=== PATIENT | male | born 1945 | race Caucasian/White ===

== ENCOUNTER → 2017-10-19 | Day surgery (SDC) | payer OTHER, MEDICARE ==
[2017-09-17 13:52] VITALS: Ht 167.6 cm; Wt 86.4 kg
[~2017-10-19] VITALS: Ht 167.6 cm; Wt 86.4 kg
[~2017-10-19] MED LIST: 500ML BSS 0.3ML EPI 1:1000PF IRRIG ONE; ACET-1256 PO; ACETAMINOPHEN 325 MG TAB PO PRN; ALLO300T2 PO; AMLO-114 PO; AMVISC PLUS 0.8ML SYRINGE INT OCU ONE; ASPI325T39 PO; B-COTAB18 PO; BRIMONIDINE TART 0.2% OP SOLN PER DROP CHARGE ONE; BSS FLUSH ONE; CLIN150C PO; COEN400C5 PO; CYAN100028 PO; DIPH1TAB87 PO; ENDOCOAT 0.85ML SYRINGE INT OCU ONE; EpINEphrine INJ 1MG/ML AMP 1 MG/ML AMP ONE; FURO-85 PO; GLIM2TAB2 PO; HYDR25TA4 PO; LACTATED RINGER'S 1000ML 1,000 ML IV SCH; LIDOCAINE 4% OP SOLN DROP CHARGE ONE; LIDOCAINE 4% OP SOLN DROP CHARGE OPL SCH; LIDOCAINE HCL 1% MPF 2 ML VIAL ONE; LISI-725 PO; MIDAZOLAM HCL 1 MG/ML 2ML VIAL ONE; MOXIFLOXACIN OPH SOLN PER DROP CHARGE ONE; MULT-506 PO; NURSING VERBAL MED ORDER ONE; POVIDONE-IODINE OP SOLN 30 ML BTL ONE; PROPARACAINE 0.5% OP SOLN PER DROP CHARGE OPL SCH; PRVC/40 PO; RANI300T2 PO; TAUR1000 PO; TOBRAMYCIN/DEXAMETHASONE OPH OINT PER APPLN CHARGE ONE
[2017-10-19] MEDS: PHENYLEPHRINE HCL 2.5% OP SOLN PER DROP CHARGE OPL SCH ×2 (06:40→06:45)
[2017-10-19] MEDS: TROPICAMIDE 1% OP SOLN PER DROP CHARGE OPL SCH ×2 (06:41→06:46)
[2017-10-19] MEDS: CYCLOPENTOLATE HCL 1% OP SOLN PER DROP CHARGE OPL SCH ×2 (06:42→06:47)
[2017-10-19] MEDS: KETOROLAC 0.5% OP SOLN PER DROP CHARGE OPL SCH ×2 (06:43→06:48)
[2017-10-19] MEDS: MOXIFLOXACIN OPH SOLN PER DROP CHARGE OPL SCH ×2 (06:44→06:54)
--- NOTE | 2017-10-19 06:56 | History & Physical Bridge - [place] ---
H&P Re-Evaluation Bridge Note: I have examined the patient, reviewed the History & Physical and in the interval since the performance of the History & Physical I have noted the following changes of clinical significance: No changes noted
--- NOTE | 2017-10-19 07:59 | [facility] Operative Report ---
Operative Report Operative Date Oct 19, 2017. Pre-Operative Diagnosis Cataract left eye Post-Operative Diagnosis Same as pre-op Procedure(s) Performed Left Cataract Phacoemulsification With Intraocular Lens Implant Surgeon Ultrasound Technol Surgeon(s) None Estimated Blood Loss Zero Findings cataract left eye Fluids (cc crystalloids) see anesthesia record Specimens None Drains none Anesthesia local with sedation Complication(s) None Disposition Recovery Room / PACU Implants [id number] 22.5 Indications decreased vision left eye Description of Procedure After informed consent was obtained in the holding area the patient was wheeled back to the operating room where cardiac monitoring leads and oxygen by nasal cannula was administered by Anesthesia. Gentle IV sedation was given, and the patient's left eye was prepped and draped in usual sterile fashion. A wire lid speculum was placed into the left eye and the operating microscope was swung into position. Using 0.12 forceps and a Supersharp blade a paracentesis port was made 2 o'clock hours away from the 3 o'clock position of the patient's left eye. 1% non-preserved Lidocaine was then injected into the anterior chamber for anesthesia. A 2.0 mm keratotome blade was then used to make a shelved clear corneal incision at the 3 o'clock position of the left eye. Amvisc was injected into the anterior chamber and a cystotome and Utrata forceps were used to perform a curvilinear capsulorrhexis. BSS on a hydrodissection cannula was used to hydrodissect the lens nucleus away from the capsular bag. The phacoemulsification handpiece was then used in a stop and chop fashion to remove the lens nucleus. The irrigation and aspiration handpiece was then used to remove the residual cortical material. Amvisc was injected into the capsular bag and anterior chamber and a [employer]ch [employer] Lomb MX60 22.5 Diopter intraocular lens was injected into the capsular bag. Irrigation and aspiration handpiece was used to remove the residual viscoelastic material. The wounds were hydrated and noted to be watertight. The wire lid speculum was removed from the eye. Vigamox, Brimonidine, and TobraDex ointment were placed on the eye and it was shielded. It should be noted that EndoCoat was used extensively during the case to protect the cornea endothelium. DISPOSITION: The patient tolerated the procedure well and was wheeled to the post anesthesia care unit in stable condition. I attest to the content of the Intraoperative Record and any orders documented therein. Any exceptions are noted below. I attest to the content of the Intraoperative Record and any orders documented therein. Any exceptions are noted below.
--- NOTE | 2017-10-19 08:01 | Discharge Instructions-SurgCtr ---
Discharge Instructions Date of Service Oct 19, 2017. Visit Reason for Visit: Cataract Left Eye Discharge Discharge Diagnosis / Problem: cataract left eye Discharge Goals Goal(s): Improve function Activity Recommendations Activity Limitations: per Instructions/Follow-up section Lifting Limitations: no more than 5 pounds Anesthesia . Post Anesthesia Instructions: If you have had General Anesthesia or IV Sedation: * Do not drive today. * Resume driving when surgeon permits. * Do not make important decisions or sign legal documents today. * Call surgeon for: 1. Temperature elevations greater than 101 degrees F. 2. Uncontrollable pain. 3. Excessive bleeding. 4. Persistent nausea and vomiting. 5. Medication intolerance (nausea, vomiting or rash). * For nausea and vomiting use only clear liquids such as: tea, soda, bouillon until nausea subsides, then gradually increase diet as tolerated. * If you have any concerns or questions, call your surgeon's office. If physician is unavailable and it is an emergency, call 911 or go to the nearest emergency room. . Instructions / Follow-Up Instructions / Follow-Up ACTIVITY RECOMMENDATIONS: * Light activities * You may walk outside, read, watch television. * Mild irritation and blurred vision are common for the first few days, redness around the white part of the eye is common. MEDICATIONS: Resume previous medications unless instructed otherwise by your surgeon. Eye drops (today and tomorrow): Cipro - one drop in operative eye every 2 hours while awake Prednisolone 1% - one drop in operative eye every 2 hours while awake Ilevro - one drop operative eye 1 times daily SPECIAL CARE INSTRUCTIONS: * If any problems or concerns, please call Dr. Pulliam's office at . * Keep plastic shield taped over eye to sleep at night. * Keep plastic shield taped over eye except to administer eye drops. * Keep plastic shield on until office visit the following day. FOLLOW UP VISIT: Follow-up with Dr. Pulliam in the [place] office as scheduled. If not already scheduled, please call the office at . Diet Recommendations Home Diet: resume previous diet Procedures Procedures Performed: Left Cataract Phacoemulsification With Intraocular Lens Implant Pending Studies Studies pending at discharge: no Medical Emergencies . Who to Call and When: Medical Emergencies: If at any time you feel your situation is an emergency, please call 911 immediately. . Non-Emergent Contact Non-Emergency issues call your: Plant Operations Manager . . "Provider Documentation" section prepared by Torin Pulliam. .
[2017-10-19 08:04] VITALS: TEMP 36.4
[2017-10-19 08:20] VITALS: BP 112/69; PULSE 80; O2SAT 96
--- NOTE | 2017-10-19 08:23 | Anesthesia Progress Nt - [facility] ---
Anesthesia Post Op Note Date & Time Oct 19, 2017 at 08:22 Vital Signs Pain Intensity: 0 Vital Signs Past 12 Hours Date Time Temp Pulse Resp B/P (MAP) Pulse Ox O2 Delivery O2 Flow Rate FiO2 10/19/17 08:20 80 20 112/69 (83) 96 Room Air 10/19/17 08:04 36.4 77 16 160/73 (102) 95 Room Air 10/19/17 06:29 37.0 98 22 126/77 (93) 95 Room Air Notes Mental Status: alert / awake / arousable, participated in evaluation Pt Amnestic to Procedure: Yes Nausea / Vomiting: adequately controlled Pain: adequately controlled Airway Patency, RR, SpO2: stable & adequate BP & HR: stable & adequate Hydration State: stable & adequate Anesthetic Complications: no major complications apparent
== END | disposition home or self-care (01) ==
LOC: X.SURG 06:17
PROVIDERS: ATTEND Ophthalmology
DX: E11.36 Type 2 diabetes mellitus with diabetic cataract (principal); H26.9 Unspecified cataract; G47.33 Obstructive sleep apnea (adult) (pediatric); I25.2 Old myocardial infarction; I10 Essential (primary) hypertension; I25.10 Atherosclerotic heart disease of native coronary artery without angina pectoris; Z79.899 Other long term (current) drug therapy

== ENCOUNTER → 2017-11-02 | Day surgery (SDC) | payer OTHER, MEDICARE ==
[2017-10-27 15:16] VITALS: Ht 167.6 cm; Wt 86.4 kg
[~2017-11-02] VITALS: Ht 167.6 cm; Wt 86.4 kg
[~2017-11-02] MED LIST changes: +BRIMONIDINE TARTRATE 0.2% 5ML ONE; +FENTANYL CITRATE INJ 50 MCG/1 ML 2 ML VIAL ONE; +GLIM1TAB2 PO; -LACTATED RINGER'S 1000ML 1,000 ML IV SCH; +LACTATED RINGER'S 1000ML 500 ML IV SCH; -LIDOCAINE 4% OP SOLN DROP CHARGE OPL SCH; +LIDOCAINE 4% OP SOLN DROP CHARGE OPR SCH; -NURSING VERBAL MED ORDER ONE; -PROPARACAINE 0.5% OP SOLN PER DROP CHARGE OPL SCH; +PROPARACAINE 0.5% OP SOLN PER DROP CHARGE OPR SCH; +PROPARACAINE HCL 0.5% OP SOLN 15 ML BTL OPR ONE; +VISCOAT 0.5ML SYRINGE INT OCU ONE
[2017-11-02] MEDS: PHENYLEPHRINE HCL 2.5% OP SOLN PER DROP CHARGE OPR SCH ×2 (10:47→10:52)
[2017-11-02] MEDS: TROPICAMIDE 1% OP SOLN PER DROP CHARGE OPR SCH ×2 (10:48→10:53)
[2017-11-02] MEDS: CYCLOPENTOLATE HCL 1% OP SOLN PER DROP CHARGE OPR SCH ×2 (10:49→10:54)
[2017-11-02] MEDS: KETOROLAC 0.5% OP SOLN PER DROP CHARGE OPR SCH ×2 (10:50→10:55)
[2017-11-02] MEDS: MOXIFLOXACIN OPH SOLN PER DROP CHARGE OPR SCH ×2 (10:51→11:01)
--- NOTE | 2017-11-02 12:42 | [facility] Post Operative Brief Note ---
Immediate Operative Summary Operative Date Nov 02, 2017. Pre-Operative Diagnosis Right Eye Cataract Post-Operative Diagnosis Same Procedure(s) Performed Right Eye Cataract Phacoemulsification With Intraocular Lens Implant Surgeon Dr. Pulliam Marketing Manager Surgeon(s) None Estimated Blood Loss None Findings Consistent with Post-Op Diagnosis Specimens None Drains None Anesthesia Type MAC Complication(s) none Disposition Accompanied Pt To Recovery: no Disposition: Recovery Room / PACU
--- NOTE | 2017-11-02 12:43 | Discharge Instructions-SurgCtr ---
Discharge Instructions Date of Service Nov 02, 2017. Visit Reason for Visit: Cataract Right Eye Discharge Discharge Diagnosis / Problem: cataract right eye Discharge Goals Goal(s): Improve function Activity Recommendations Activity Limitations: per Instructions/Follow-up section Lifting Limitations: no more than 5 pounds Anesthesia . Post Anesthesia Instructions: If you have had General Anesthesia or IV Sedation: * Do not drive today. * Resume driving when surgeon permits. * Do not make important decisions or sign legal documents today. * Call surgeon for: 1. Temperature elevations greater than 101 degrees F. 2. Uncontrollable pain. 3. Excessive bleeding. 4. Persistent nausea and vomiting. 5. Medication intolerance (nausea, vomiting or rash). * For nausea and vomiting use only clear liquids such as: tea, soda, bouillon until nausea subsides, then gradually increase diet as tolerated. * If you have any concerns or questions, call your surgeon's office. If physician is unavailable and it is an emergency, call 911 or go to the nearest emergency room. . Instructions / Follow-Up Instructions / Follow-Up ACTIVITY RECOMMENDATIONS: * Light activities * You may walk outside, read, watch television. * Mild irritation and blurred vision are common for the first few days, redness around the white part of the eye is common. MEDICATIONS: Resume previous medications unless instructed otherwise by your surgeon. Eye drops (today and tomorrow): Cipro - one drop in operative eye every 2 hours while awake Prednisolone 1% - one drop in operative eye every 2 hours while awake Ilevro - one drop operative eye 1 times daily SPECIAL CARE INSTRUCTIONS: * If any problems or concerns, please call Dr. Pulliam's office at . * Keep plastic shield taped over eye to sleep at night. * Keep plastic shield taped over eye except to administer eye drops. * Keep plastic shield on until office visit the following day. FOLLOW UP VISIT: Follow-up with Dr. Pulliam in the [place] office as scheduled. If not already scheduled, please call the office at . Diet Recommendations Home Diet: resume previous diet Procedures Procedures Performed: Right Eye Cataract Phacoemulsification With Intraocular Lens Implant Pending Studies Studies pending at discharge: no Medical Emergencies . Who to Call and When: Medical Emergencies: If at any time you feel your situation is an emergency, please call 911 immediately. . Non-Emergent Contact Non-Emergency issues call your: [employer] Manager . . "Provider Documentation" section prepared by Torin Pulliam. .
[2017-11-02 12:45] VITALS: TEMP 36.4
--- NOTE | 2017-11-02 12:48 | [facility] Operative Report ---
Operative Report Operative Date Nov 02, 2017. Pre-Operative Diagnosis Right Eye Cataract and astigmatism Post-Operative Diagnosis Same Procedure(s) Performed Right Eye Cataract Phacoemulsification With Toric Intraocular Lens Implant and femtosecond laser Surgeon Dr. Pulliam Manager Program Management Surgeon(s) None Estimated Blood Loss None Findings cataract right eye Specimens None Drains None Anesthesia Type MAC Complication(s) none Disposition no Recovery Room / PACU Indications decreased vision right eye Description of Procedure After informed consent was obtained in the holding area the patient was wheeled back to the femtosecond laser room. The capsulorrhexis, prechop of the lens, and primary incision were made by the laser. The patient was then taken to the operating room where cardiac monitoring leads and oxygen by nasal cannula was administered by Anesthesia. Gentle IV sedation was given, and the patient's right eye was prepped and draped in usual sterile fashion. A wire lid speculum was placed into the right eye and the operating microscope was swung into position. Using 0.12 forceps and a Supersharp blade a paracentesis port was made 2 o'clock hours away from the 9 o'clock position of the patient's right eye. 1% non-preserved Lidocaine was then injected into the anterior chamber for anesthesia. Endocoat was injected into the anterior chamber. A Ycrus spatula was then used to enter the shelved clear corneal incision at the 9 o'clock position of the right eye. Amvisc was injected into the anterior chamber and a cystotome and Utrata forceps were used to perform a curvilinear capsulorrhexis. BSS on a hydrodissection cannula was used to hydrodissect the lens nucleus away from the capsular bag. The phacoemulsification handpiece was then used in a stop and chop fashion to remove the lens nucleus. The irrigation and aspiration handpiece was then used to remove the residual cortical material. Amvisc was injected into the capsular bag and anterior chamber and a JORGE QGF351 24.0 Diopter intraocular lens was injected into the capsular bag. Irrigation and aspiration handpiece was used to remove the residual viscoelastic material. The lens was aligned along the 175 degree meridian with novak made in preop. The wounds were hydrated and noted to be watertight. The wire lid speculum was removed from the eye. Vigamox, Brimonidine, and TobraDex ointment were placed on the eye and it was shielded. It should be noted that EndoCoat was used extensively during the case to protect the cornea endothelium. DISPOSITION: The patient tolerated the procedure well and was wheeled to the post anesthesia care unit in stable condition. I attest to the content of the Intraoperative Record and any orders documented therein. Any exceptions are noted below. I attest to the content of the Intraoperative Record and any orders documented therein. Any exceptions are noted below.
--- NOTE | 2017-11-02 13:07 | Anesthesia Progress Nt - [facility] ---
Anesthesia Post Op Note Date & Time Nov 02, 2017 at 13:07 Vital Signs Pain Intensity: 0 Vital Signs Past 12 Hours Date Time Temp Pulse Resp B/P (MAP) Pulse Ox O2 Delivery O2 Flow Rate FiO2 11/02/17 12:45 36.4 82 16 145/84 (104) 96 Room Air 11/02/17 12:10 76 20 138/63 96 Room Air 11/02/17 12:05 79 16 131/63 96 Room Air 11/02/17 10:38 36.6 91 20 152/78 (102) 97 Room Air Notes Mental Status: alert / awake / arousable, participated in evaluation Pt Amnestic to Procedure: Yes Nausea / Vomiting: adequately controlled Pain: adequately controlled Airway Patency, RR, SpO2: stable & adequate BP & HR: stable & adequate Hydration State: stable & adequate Anesthetic Complications: no major complications apparent
[2017-11-02 13:08] VITALS: BP 134/72; PULSE 74; O2SAT 97
== END | disposition home or self-care (01) ==
LOC: X.SURG 10:22
PROVIDERS: ATTEND Ophthalmology
DX: E11.36 Type 2 diabetes mellitus with diabetic cataract (principal); H26.9 Unspecified cataract; I10 Essential (primary) hypertension; I25.10 Atherosclerotic heart disease of native coronary artery without angina pectoris; I25.2 Old myocardial infarction; Z87.891 Personal history of nicotine dependence; Z98.890 Other specified postprocedural states; E66.9 Obesity, unspecified; Z86.73 Personal history of transient ischemic attack (TIA), and cerebral infarction without residual deficits; Z90.49 Acquired absence of other specified parts of digestive tract